=== PATIENT | female | born 1960 | race Caucasian/White ===

== ENCOUNTER 2017-01-12 21:28 | Emergency (ER) | payer BC ==
[~2017-01-12] VITALS: Ht 162.6 cm; Wt 64.9 kg
--- NOTE | 2017-01-12 22:20 | PHYS DOC ---
Past History Past Medical History: No Pertinent History Past Surgical History: Tonsillectomy, Other Alcohol Use: None Drug Use: None Adult General Chief Complaint Chief Complaint: LOWER EXT PAIN HPI HPI Patient is a pleasant 56-year-old female with no major medical problems who presents with leg pain has been bothering her for months. The reason why she came in today is because the pain is gotten increasingly worse behind the calf on the left with localized tenderness to behind the knee. She admits to no trauma, no localized swelling, warmth, redness, change in skin color or tone. She's had increasing pain for last several months and notes is now more constant what hurts to much there is a heaviness in her leg. She denies any numbness or tingling denies any swelling. She does not travel outside the country he she has not been immobilized, she is not in any kind of exogenous estrogen, she's had no history of cancer, and no prior history of DVT or PE. Review of Systems Review of Systems Constitutional: Denies fever or chills [] Eyes: Denies change in visual acuity, redness, or eye pain [] HENT: Denies nasal congestion or sore throat [] Respiratory: Denies cough or shortness of breath [] Cardiovascular: No additional information not addressed in HPI [] GI: Denies abdominal pain, nausea, vomiting, bloody stools or diarrhea [] : Denies dysuria or hematuria [] Musculoskeletal: Denies back pain her only complaint is lower left leg pain Integument: Denies rash or skin lesions [] Neurologic: Denies headache, focal weakness or sensory changes [] Endocrine: Denies polyuria or polydipsia [] Physical Exam Physical Exam Vital signs recorded on the chart within normal limits. Constitutional: Well developed, well nourished, no acute distress, non-toxic appearance. [] Cardiovascular:Heart rate regular rhythm, no murmur [] Lungs & Thorax: Bilateral breath sounds clear to auscultation [] Skin: Warm, dry, no erythema, no rash. [] Extremities: no cyanosis, no clubbing, ROM intact, no edema. She has some tenderness to palpation over the calf there is no true Homans sign, no warmth no swelling no soft tissue redness or erythema. There is no rash. Patient has brisk capillary refill +2 peripheral pulses [] Neurologic: Alert and oriented X 3, normal motor function, normal sensory function, no focal deficits noted. [] Psychologic: Affect normal, judgement normal, mood normal. [] Current Patient Data Vital Signs Vital Signs Date Time Temp Pulse Resp B/P (MAP) Pulse Ox O2 Delivery O2 Flow Rate FiO2 01/12/17 21:40 98.0 67 16 99 Room Air Lab Results Laboratory Tests Test 01/12/17 22:31 White Blood Count 5.8 x10^3/uL (4.0-11.0) Red Blood Count 4.61 x10^6/uL (3.50-5.40) Hemoglobin 13.8 g/dL (12.0-15.5) Hematocrit 41.2 % (36.0-47.0) Mean Corpuscular Volume 89 fL (79-100) Mean Corpuscular Hemoglobin 30 pg (25-35) Mean Corpuscular Hemoglobin Concent 34 g/dL (31-37) Red Cell Distribution Width 13.5 % (11.5-14.5) Platelet Count 289 x10^3/uL (140-400) Neutrophils (%) (Auto) 49 % (31-73) Lymphocytes (%) (Auto) 38 % (24-48) Monocytes (%) (Auto) 8 % (0-9) Eosinophils (%) (Auto) 4 % (0-3) H Basophils (%) (Auto) 1 % (0-3) Neutrophils # (Auto) 2.8 x10^3uL (1.8-7.7) Lymphocytes # (Auto) 2.2 x10^3/uL (1.0-4.8) Monocytes # (Auto) 0.5 x10^3/uL (0.0-1.1) Eosinophils # (Auto) 0.2 x10^3/uL (0.0-0.7) Basophils # (Auto) 0.0 x10^3/uL (0.0-0.2) Sodium Level 140 mmol/L (136-145) Potassium Level 3.9 mmol/L (3.5-5.1) Chloride Level 104 mmol/L (98-107) Carbon Dioxide Level 29 mmol/L (21-32) Anion Gap 7 (6-14) Blood Urea Nitrogen 18 mg/dL (7-20) Creatinine 1.0 mg/dL (0.6-1.0) Estimated GFR (Cockcroft-Gault) 57.1 BUN/Creatinine Ratio 18 (6-20) Glucose Level 100 mg/dL (70-99) H Calcium Level 8.6 mg/dL (8.5-10.1) Total Bilirubin 0.2 mg/dL (0.2-1.0) Aspartate Amino Transferase (AST) 23 U/L (15-37) Alanine Aminotransferase (ALT) 26 U/L (14-59) Alkaline Phosphatase 71 U/L (46-116) Creatine Kinase 136 U/L (26-192) Creatine Kinase MB (Mass) 1.3 ng/mL (0.0-3.6) Creatine Kinase MB Relative Index 1.0 % (0-4) Total Protein 7.6 g/dL (6.4-8.2) Albumin 4.1 g/dL (3.4-5.0) Albumin/Globulin Ratio 1.2 (1.0-1.7) EKG EKG [] Radiology/Procedures Radiology/Procedures [] Course & Med Decision Making Course & Med Decision Making Pertinent Labs and Imaging studies reviewed. (See chart for details) patient presents with four-month history of leg pain is gotten progressively worse over last several days. She describes a heaviness in her legs but no clear claudication on exertion. She has had no trauma, redness, swelling to the leg only pain. She had an incomplete DVT workup here in the emergency department or her CBC and other laboratory work was unremarkable. Patient DONE AT THE BEDSIDE WHICH DID NOT DEMONSTRATE A MYERS'S CYST OR LOCALIZED INFLAMMATION WITHIN THE TISSUE. We are waiting for the official read of the Ultram by radiology. The patient's ultrasound was done at approximately 11:30 PM patient is comfortable I've explained to her that we are waiting for the results of the ultrasound at this time. The automotive drivability technician did make mention of possibly a small clot at the valve of the popliteal vein posterior leg. Time is now 12:30 AM ultrasound is still pending at this time. Patient is getting anxious to go home Time is now 1:19 a.m. patient also was still not done or completely red by radiology patient would like to leave AGAINST MEDICAL ADVICE and await the results at home for she has to get a nights sleep in the chest. Work in the morning. Patient is quite lucid and understands the risk and, patient's of leaving without having the workup completed. She is willing to accept that risk. We splinted her the alternative is to continue to wait I might appear to treat her with daily aspirin and asked her to follow-up with her primary care physician in the next day or 2 if in fact she does have a DVT he may need to start long-acting anticoagulant on her. I could offer offer her a dose of subcutaneous Lovenox as protection until that time, the interim I will offer something for discomfort that may help with her symptoms acutely. [] Dragon Disclaimer Dragon Disclaimer This chart was dictated in whole or in part using Voice Recognition software in a busy, high-work load, and often noisy Emergency Department environment. It may contain unintended and wholly unrecognized errors or omissions. Departure Departure: Impression: Primary Impression: Leg pain Additional Impression: Left against medical advice Disposition: AGAINST MEDICAL ADVICE Condition: GUARDED Referrals: PCP,NO (PCP) Patient Instructions: Leg Cramps Additional Instructions: My discharge plan Follow up: In addition patient is asked to followup with their primary doctor, within a week for followup examination and to address patient's ongoing medical conditions. Because patient does not have a regular medical doctor, a local physician Resource Sheet will be provided to establish care primary care. Patient is advised that in the Emergency Department primary complaints are addressed and only in light of known signs and symptoms. Patient should return immediately to the emergency department if new signs and symptoms develop or patient's condition worsens in any way. At time of discharge patient was in stable condition and had verbalized understanding of the discharge instructions. Scripts Aspirin (ASPIRIN EC) 325 Mg Tablet. 1 TAB PO DAILY, #30 TAB 0 Refills Prov: OLEG VALENZUELA MD 01/13/17 Hydrocodone Bit/Acetaminophen (HYDROCODONE-APAP 5-325 ) 1 Each Tablet 1 TAB PO PRN Q6HRS Y for PAIN, #14 TAB 0 Refills Prov: OLEG VALENZUELA MD 01/13/17 Problem Qualifiers OLEG VALENZUELA MD Jan 12, 2017 22:20
[2017-01-12 22:47] LABS: BASO % 1 % (0-3); EOS # 0.2 x10^3/uL (0.0-0.7); EOS % 4 % (0-3); HEMATOCRIT 41.2 % (36.0-47.0); HEMOGLOBIN 13.8 g/dL (12.0-15.5); LYMPH # 2.2 x10^3/uL (1.0-4.8); LYMPH % 38 % (24-48); MEAN CORPUSCULAR HEMOGLOBIN 30 pg (25-35); MEAN CORPUSCULAR HGB CONC 34 g/dL (31-37); MEAN CORPUSCULAR VOLUME 89 fL (79-100); MONO # 0.5 x10^3/uL (0.0-1.1); MONO % 8 % (0-9); NEUT # 2.8 x10^3uL (1.8-7.7); NEUT % 49 % (31-73); PLATELET COUNT 289 x10^3/uL (140-400); RED BLOOD COUNT 4.61 x10^6/uL (3.50-5.40); RED CELL DISTRIBUTION WIDTH 13.5 % (11.5-14.5); WHITE BLOOD COUNT 5.8 x10^3/uL (4.0-11.0)
[2017-01-12 23:09] LABS: ALBUMIN 4.1 g/dL (3.4-5.0); ALBUMIN/GLOBULIN RATIO 1.2 (1.0-1.7); CALCIUM 8.6 mg/dL (8.5-10.1); GFR 57.1; POTASSIUM 3.9 mmol/L (3.5-5.1); TOTAL BILIRUBIN 0.2 mg/dL (0.2-1.0); TOTAL PROTEIN 7.6 g/dL (6.4-8.2)
[2017-01-12] MEDS ORDERED: NORMAL SALINE ONE (23:54)
[2017-01-13 01:22] VITALS: BP 143/79
[2017-01-13] MEDS ORDERED: HYDR-2758 PO (01:23)
[2017-01-13] MEDS ORDERED: ASPI325T11 PO (01:23)
--- NOTE | 2017-01-13 01:37 | RAD ---
Ultrasound venous Doppler left lower extremity 01/12/2017 CLINICAL INDICATION: Left lower extremity pain and swelling. COMPARISON: None. FINDINGS: Grayscale, color Doppler, and spectral analysis of the left lower extremity venous system. Common femoral, femoral, deep femoral and popliteal veins are patent with normal color Doppler imaging. Limited calf pain survey is unremarkable. IMPRESSION: No evidence of acute DVT in the left lower extremity. Electronically signed by: Dwain Oneil MD (01/13/2017 1:34 AM) [id number]
== END 2017-01-13 01:25 | disposition left against medical advice (07) ==
LOC: ER 21:28
DX: M79.605 Pain in left leg (principal); M25.562 Pain in left knee
CPT/HCPCS: 36415; 80053; 82553; 85025; 93971; 99285-25